=== PATIENT | male | born 1935 | race Caucasian/White ===

== ENCOUNTER 2017-07-18 18:27 | Observation (INO) | payer MEDICARE, OTHER ==
[2017-07-18 20:44] LABS: ADD MAN DIFF? NO
[2017-07-18 20:47] LABS: BASOPHILS % 0.3 % (0.0-2.0); EOSINOPHILS % 0.5 % (0.0-7.0); HEMATOCRIT 38.1 % (42.0-52.0); HEMOGLOBIN 12.8 g/dl (14.0-18.0); LYMPHOCYTES # 1.6 10^3/ul (0.8-2.9); MEAN CORPUSCULAR HEMOGLOBIN 33.1 pg (29.0-33.0); MEAN CORPUSCULAR HGB CONC 33.6 g/dl (32.0-37.0); MEAN CORPUSCULAR VOLUME 98.4 fl (82.0-101.0); MEAN PLATELET VOLUME 10.6 fl (7.4-10.4); MONOCYTE # 0.8 10^3/ul (0.3-0.9); MONOCYTES % 10.5 % (0.0-11.0); NEUTROPHIL # 4.9 10^3/ul (1.6-7.5); NEUTROPHILS % 66.4 % (39.0-77.0); PLATELET COUNT 139 10^3/UL (140-415); POSITIVE DIFF @See below; RED BLOOD COUNT 3.87 10^6/ul (4.70-6.10); RED CELL DISTRIBUTION WIDTH 13.1 % (11.5-14.5)
[2017-07-18 20:47] LABS: WHITE BLOOD COUNT 7.4 10^3/ul (4.8-10.8)
[2017-07-18] MEDS: SOD CHLORIDE 0.9% 1,000 ML IV (20:59)
[2017-07-18 21:03] LABS: INR 1.72; PROTIME 20.5 Sec (11.9-14.9); PT RATIO 1.6
[2017-07-18 21:04] LABS: PARTIAL THROMBOPLASTIN TIME 43.9 Sec (25.0-35.0)
[2017-07-18 21:05] LABS: ALANINE AMINOTRANSFERASE 24 IU/L (13-69); ALBUMIN 4.2 g/dl (3.3-4.9); ALBUMIN/GLOBULIN RATIO 1.35; ALKALINE PHOSPHATASE 81 IU/L (42-121); ANION GAP 14 (8-16); ASPARTATE AMINO TRANSFERASE 27 IU/L (15-46); BILIRUBIN,INDIRECT 0.2 mg/dl (0-1.1); BILIRUBIN,TOTAL 0.2 mg/dl (0.2-1.3); BLOOD UREA NITROGEN 20 mg/dl (7-20); CALCIUM 9.4 mg/dl (8.4-10.2); CARBON DIOXIDE 33 mmol/L (21-31); CHLORIDE 99 mmol/L (97-110); GLUCOSE 126 mg/dl (70-220); LIPASE 133 U/L (23-300); POTASSIUM 3.7 mmol/L (3.5-5.1); SODIUM 142 mmol/L (135-144); TOTAL PROTEIN 7.3 g/dl (6.1-8.1)
[2017-07-18 21:18] LABS: TROPONIN-I < 0.012 ng/ml (0.00-0.12)
[2017-07-18] MEDS: ASPIRIN 81 MG TAB PO (21:19)
[2017-07-18] MEDS ORDERED: LORAZEPAM 0.5 MG TAB PO (22:00)
[2017-07-18] MEDS ORDERED: ALPRAZOLAM 0.25 MG TAB PO (22:00)
[2017-07-18] MEDS ORDERED: NACL 0.9% 3 ML SYG IV (22:00)
[2017-07-18] MEDS: HEPARIN 5,000 UNIT/0.5 ML VIAL SC (22:00)
[2017-07-18] MEDS ORDERED: DOCUSATE SODIUM 100 MG CAP PO (22:00)
[2017-07-18] MEDS ORDERED: NITROGLYCERIN (SL) 0.4 MG TAB SL (22:00)
[2017-07-18] MEDS ORDERED: ONDANSETRON 4 MG TAB PO (22:00)
[2017-07-18] MEDS ORDERED: ACETAMINOPHEN 325 MG TAB PO (22:00)
[2017-07-18] MEDS ORDERED: ZOLPIDEM 5 MG TAB PO (22:00)
[2017-07-18] MEDS ORDERED: HYDROCODONE/APAP (5/325) TAB PO (22:00)
[2017-07-18 22:32] LABS: CREATINE KINASE 67 IU/L (23-200)
[2017-07-18 22:45] LABS: CK INDEX 1.5
[2017-07-18 22:46] LABS: CK-MB 0.98 ng/ml (0.0-2.4); TROPONIN-I < 0.012 ng/ml (0.00-0.12)
[2017-07-18] MEDS ORDERED: [UNRECOGNIZED DRUG - REMARK] XX (23:00)
[2017-07-19 05:38] LABS: ADD MAN DIFF? NO
[2017-07-19 05:39] LABS: WHITE BLOOD COUNT 6.2 10^3/ul (4.8-10.8)
[2017-07-19 05:40] LABS: BASOPHILS % 0.3 % (0.0-2.0); EOSINOPHILS # 0.1 10^3/ul (0.0-0.5); EOSINOPHILS % 1.1 % (0.0-7.0); HEMATOCRIT 34.3 % (42.0-52.0); HEMOGLOBIN 11.3 g/dl (14.0-18.0); LYMPHOCYTES # 1.3 10^3/ul (0.8-2.9); LYMPHOCYTES % 21.5 % (15.0-51.0); MEAN CORPUSCULAR HEMOGLOBIN 32.4 pg (29.0-33.0); MEAN CORPUSCULAR HGB CONC 32.9 g/dl (32.0-37.0); MEAN CORPUSCULAR VOLUME 98.3 fl (82.0-101.0); MEAN PLATELET VOLUME 10.8 fl (7.4-10.4); MONOCYTE # 0.8 10^3/ul (0.3-0.9); MONOCYTES % 12.6 % (0.0-11.0); NEUTROPHILS % 64.2 % (39.0-77.0); PLATELET COUNT 119 10^3/UL (140-415); POSITIVE DIFF @See below; RED BLOOD COUNT 3.49 10^6/ul (4.70-6.10); RED CELL DISTRIBUTION WIDTH 13.3 % (11.5-14.5)
[2017-07-19 06:03] LABS: ALANINE AMINOTRANSFERASE 28 IU/L (13-69); ALBUMIN 3.6 g/dl (3.3-4.9); ALBUMIN/GLOBULIN RATIO 1.63; ALKALINE PHOSPHATASE 53 IU/L (42-121); ANION GAP 13 (8-16); ASPARTATE AMINO TRANSFERASE 23 IU/L (15-46); BILIRUBIN,INDIRECT 0.3 mg/dl (0-1.1); BILIRUBIN,TOTAL 0.3 mg/dl (0.2-1.3); BLOOD UREA NITROGEN 15 mg/dl (7-20); CALCIUM 8.7 mg/dl (8.4-10.2); CARBON DIOXIDE 31 mmol/L (21-31); CHLORIDE 103 mmol/L (97-110); CHOL/HDL RATIO 1.7 RATIO; CHOLESTEROL 114 mg/dl (100-200); CREATININE 0.87 mg/dl (0.61-1.24); GLUCOSE 101 mg/dl (70-220); HDL CHOLESTEROL 66 mg/dl (31-75); LDL CHOLESTEROL,CALCULATED 40 mg/dl; POTASSIUM 3.9 mmol/L (3.5-5.1); SODIUM 143 mmol/L (135-144); TOTAL PROTEIN 5.8 g/dl (6.1-8.1); TRIGLYCERIDES 41 mg/dl (0-149)
[2017-07-19 06:11] LABS: CREATINE KINASE 61 IU/L (23-200)
[2017-07-19 06:12] LABS: CK INDEX 1.6; TROPONIN-I 0.015 ng/ml (0.00-0.12)
[2017-07-19 06:17] LABS: HEMOGLOBIN A1C 6.2 % (0-5.9)
[2017-07-19 06:19] LABS: CK-MB 0.98 ng/ml (0.0-2.4)
[2017-07-19] MEDS: HEPARIN 5,000 UNIT/0.5 ML VIAL SC (06:46)
[2017-07-19] MEDS: ACCU-CHEK XX ×2 (07:41→08:31)
[2017-07-19] MEDS: CALCIUM CARBONATE 500 MG CHEW TAB PO (08:22)
[2017-07-19] MEDS: ALLOPURINOL 300 MG TAB PO (08:22)
[2017-07-19] MEDS: LEVOTHYROXINE 50 MCG TAB PO (08:22)
[2017-07-19] MEDS: CHOLECALCIFEROL 2,000 UNIT CAP PO (08:22)
[2017-07-19] MEDS: POTASSIUM CHLORIDE (SR) 10 MEQ TAB PO (08:38)
[2017-07-19] MEDS: FAMOTIDINE 20 MG TAB PO (08:38)
[2017-07-19] MEDS: FUROSEMIDE 20 MG TAB PO (10:38)
[2017-07-19] MEDS: RIVAROXABAN 10 MG TABLET PO (10:38)
[2017-07-19] MEDS ORDERED: ATORVASTATIN 40 MG TAB PO (21:00)
== END 2017-07-19 11:50 | disposition home or self-care (01) ==
LOC: MS3 21:33 → E/R 18:27
DX: R07.89 Other chest pain (principal); I48.0 Paroxysmal atrial fibrillation; Z79.01 Long term (current) use of anticoagulants; I10 Essential (primary) hypertension; I25.10 Atherosclerotic heart disease of native coronary artery without angina pectoris; E78.5 Hyperlipidemia, unspecified; C85.90 Non-Hodgkin lymphoma, unspecified, unspecified site; Z92.21 Personal history of antineoplastic chemotherapy; I08.0 Rheumatic disorders of both mitral and aortic valves; Z86.73 Personal history of transient ischemic attack (TIA), and cerebral infarction without residual deficits
CPT/HCPCS: 71045; 80053; 80061; 82550; 82553; 82962; 83036; 83690; 84484; 85025; 85610; 85730; 92610; 93005; 99285-25